=== PATIENT | female | born 1970 | race Caucasian/White ===

== ENCOUNTER 2020-10-23 16:06 | Inpatient (IN) | payer OTHER, SELFPAY ==
[2020-10-23] VITALS (8 sets, daily range): BP systolic 110–133; BP diastolic 62–78; PULSE 68–126; RESP 15–18; TEMP 36.3–36.8; O2SAT 96–100; BMI 25.0; BMI 24.8
--- NOTE | 2020-10-23 16:34 | EKG12_ITS ---
Test Reason : ABD PAIN Blood Pressure : / mmHG Vent. Rate : 071 BPM Atrial Rate : 071 BPM P-R Int : 146 ms QRS Dur : 078 ms QT Int : 412 ms P-R-T Axes : 059 079 062 degrees QTc Int : 447 ms Normal sinus rhythm Normal ECG Confirmed by FEROZ JERONIMO, EDEN ([id number]), rn float JOSE PIERCE ([id number]) on 10/25/2020 1:30:12 PM Referred By: FRITZ Confirmed By:EDEN REDMAN MD
--- NOTE | 2020-10-23 16:34 | CT_ITS ---
HISTORY: abd pain, history of cecal malignancy EXAMINATION: CT Abdomen And Pelvis W/ Contrast Injection TECHNIQUE: Helically acquired images were obtained of the abdomen and pelvis following IV contrast. A radiation dose optimization technique was used for this scan. IV Contrast dosage and agent: 100mL Isovue-370 Oral contrast: None. COMPARISON: 11/26/16 FINDINGS: LOWER CHEST: Lung bases are clear. No cardiomegaly or pericardial effusion. LIVER: Homogeneous. No focal mass. GALLBLADDER AND BILIARY TREE: No calcified gallstones. No gallbladder distension or wall edema. No intra- or extrahepatic biliary ductal dilation. PANCREAS: No focal cystic or solid mass. SPLEEN: Normal size without focal cystic or solid mass. ADRENAL GLANDS: No nodules. KIDNEYS AND URETERS: Normal renal size and position. No hydronephrosis. PERITONEUM: No ascites or free air. BOWEL: Stable changes of partial right hemicolectomy, ileocolic anastomosis in the right upper quadrant. No stomach or bowel distension. Segment of wall thickening and mild adjacent inflammatory stranding in the mid sigmoid colon. LYMPH NODES: No enlarged mesenteric or retroperitoneal lymph nodes. VESSELS: Aorta is non-dilated. URINARY BLADDER: Unremarkable. REPRODUCTIVE ORGANS: No pelvic masses. ABDOMINAL WALL: No discrete abdominal or pelvic wall hernia. BONES: No acute or aggressive abnormality. CT/Abdomen/Pelvis WITH Contrast IMPRESSION: Colitis of the mid transverse colon, nonspecific appearance, likely infectious or other inflammatory etiology. Individualized dose optimization techniques were used for this CT. at 1902 Reported and signed by: Ramses Maynard MD Electronically Signed: Ramses Maynard MD at 19:01 EDT Tel , Service support ,
--- NOTE | 2020-10-23 16:36 | EX.ED.DYSGE1 ---
HPI History of Present Illness Chief Complaint: Abd Pain Narrative Narrative: 49-year-old female presenting with abdominal pain. Patient states this started around 1 PM today. She complains of epigastric abdominal pain. She denies nausea, vomiting, diarrhea. Denies constipation. Denies urinary complaints. Denies fever. She was diagnosed with shingles yesterday and started on valacyclovir. She went to urgent care and was advised her abdominal pain is unlikely to be secondary to this medication. She was advised to come to the emergency department for evaluation. [facility] Medical History (Updated 10/23/20 @ 21:[address] Anu Stewart MD) History of colon cancer Hypothyroid Home Medications levothyroxine 75 mcg PO DAILY 05/08/13 [History Last Taken 05/07/13] Vit D3/Folic Acid/B2/B6/B12 2,000 mg PO DAILY 12/17/16 [History Last Taken Unknown] acyclovir 400 mg PO BID 10/23/20 [History Last Taken Unknown] Allergy/AdvReac Type Severity Reaction Status Date / Time No Known Allergies Allergy Verified 10/23/20 16:09 Surgical History (Updated 10/23/20 @ 18:04 by Margaret Zuleta) History of colon resection Social History Smoking Status: Never smoker ROS [facility] ED Constitutional Constitutional ED: Denies fever(s) Eyes Eyes: Denies change in vision ENT ENT ED: Denies rhinorrhea or sore throat Cardiovascular Cardiovascular: Denies chest pain or palpitations Respiratory/Chest Respiratory/Chest: Denies cough or dyspnea Gastrointestinal Gastrointestinal: Reports abdominal pain; Denies diarrhea, nausea or vomiting Genitourinary Genitourinary ED: Denies dysuria Musculoskeletal Musculoskeletal: Denies myalgias Integumentary Reports rash Neurologic Neurologic: Denies headache(s) EXAM Physical Exam Const Vital Signs: 10/23/20 16:07 10/23/20 18:31 10/23/20 19:30 Temperature 97.3 F L Temperature Source Temporal Pulse Rate 68 83 126 H Respiratory Rate 15 16 18 Blood Pressure 133/69 H 127/62 H 110/78 Blood Pressure Mean 90 83 88 Pulse Ox 100 97 96 Oxygen Delivery Method Room Air Room Air 10/23/20 19:45 10/23/20 20:27 Temperature 98.3 F Temperature Source Oral Pulse Rate 118 H 94 Respiratory Rate 16 18 Blood Pressure 121/72 H 111/64 Blood Pressure Mean 88 79 Pulse Ox 100 100 Oxygen Delivery Method Room Air Room Air Positive well nourished and well developed General Appearance ED: well developed HEENT Reports normocephalic and head/scalp atraumatic Eyes PERRL and EOMs intact bilaterally Neck supple General: Negative for tenderness Chest Wall inspection of chest normal Resp normal respiratory effort and clear to auscultation bilaterally Cardio regular rate and regular rhythm GI Palpation: soft and tender epigastric; Negative for guarding or rebound tenderness present no CVA tenderness Extremity normal to inspection Neuro oriented x3 Sensorium / Orientation: alert Psych mental status grossly normal Skin Skin Narrative: Vesicular rash left flank consistent with shingles MDM MDM MDM Narrative Medical decision making narrative: Patient was given morphine, Zofran, IV fluids. She continues to be nauseated and was given additional dose of IV Zofran. She is unable to tolerate p.o. contrast for CT scan. She was given Phenergan IM. She then developed palpitations and chest pressure. Repeat EKG showed A. fib with RVR. She has no history of A. fib in the past. CT abdomen pelvis shows colitis. Lactic acid was added on and is 2.2. She was given Cardizem IV. Heart rate is 100 on reevaluation. Her pain and nausea is controlled at this time. Discussed with Dr. Vogel. Patient was given Cipro, Flagyl IV. Discussed with hospitalist for admission. Lab Data Attestation: I reviewed the patient's lab results. Labs: Laboratory Results - last 24 hr 10/23/20 10/23/20 10/23/20 16:45 16:45 19:23 WBC 14.8 H RBC 4.53 Hgb 14.9 Hct 42.3 MCV 93.4 MCH 32.9 H MCHC 35.2 RDW Std Deviation 40.3 RDW Coeff of Azael 11.8 Plt Count 224 MPV 11.6 Immature Gran % (Auto) 0.400 Neut % (Auto) 89.1 H Lymph % (Auto) 6.5 L [place] % (Auto) 3.8 Eos % (Auto) 0.1 Baso % (Auto) 0.1 Absolute Neuts (auto) 13.2 H Absolute Lymphs (auto) 0.96 Nucleated RBC % 0 Sodium 136 Potassium 4.4 Chloride 105 Carbon Dioxide 26.0 Anion Gap 5 BUN 18 Creatinine 0.87 Estim Creat Clear Calc 69.61 Est GFR (MDRD) Af Amer 88 Est GFR (MDRD) Non-Af 73 BUN/Creatinine Ratio 20.7 H Glucose 128 H Lactic Acid Calcium 9.0 Total Bilirubin 1.70 H AST 25 ALT 18 Alkaline Phosphatase 49 Troponin I < 0.015 Total Protein 7.4 Albumin 3.6 Globulin 3.8 Albumin/Globulin Ratio 0.9 Lipase 56 L Urine Color Yellow Urine Clarity Clear Urine pH 6.5 Ur Specific [place] 1.010 Urine Protein Negative Urine Glucose (UA) Normal Urine Ketones 50 H Urine Occult Blood Negative Urine Nitrite Negative Urine Bilirubin Negative Urine Urobilinogen Normal Ur Leukocyte Esterase Negative Urine RBC 0 SEEN Urine WBC 0 SEEN Ur Squamous Epith Cells 0 SEEN Urine Bacteria 0 SEEN Urine Mucus 0 SEEN 10/23/20 10/23/20 19:43 19:58 WBC RBC Hgb Hct MCV MCH MCHC RDW Std Deviation RDW Coeff of Azael Plt Count MPV Immature Gran % (Auto) Neut % (Auto) Lymph % (Auto) [place] % (Auto) Eos % (Auto) Baso % (Auto) Absolute Neuts (auto) Absolute Lymphs (auto) Nucleated RBC % Sodium Potassium Chloride Carbon Dioxide Anion Gap BUN Creatinine Estim Creat Clear Calc Est GFR (MDRD) Af Amer Est GFR (MDRD) Non-Af BUN/Creatinine Ratio Glucose Lactic Acid 2.2 H* Calcium Total Bilirubin AST ALT Alkaline Phosphatase Troponin I < 0.015 Total Protein Albumin Globulin Albumin/Globulin Ratio Lipase Urine Color Urine Clarity Urine pH Ur Specific [place] Urine Protein Urine Glucose (UA) Urine Ketones Urine Occult Blood Urine Nitrite Urine Bilirubin Urine Urobilinogen Ur Leukocyte Esterase Urine RBC Urine WBC Ur Squamous Epith Cells Urine Bacteria Urine Mucus Radiography Chest X-Ray - ED: 1 View, Read by ED Physician and Read by Radiologist Diagnostic Testing: Radiology Impression Abdomen/Pelvis CT 10/23/20 16:34 IMPRESSION: Colitis of the mid transverse colon, nonspecific appearance, likely infectious or other inflammatory etiology. Individualized dose optimization techniques were used for this CT. at 1902 Reported and signed by: Ramses Maynard MD Electronically Signed: Ramses Maynard MD at 19:01 EDT Tel , Service support , Chest X-Ray 10/23/20 17:30 IMPRESSION: No radiographic evidence of acute cardiopulmonary disease. at 1823 Reported and signed by: Ramses Maynard MD Electronically Signed: Ramses Maynard MD at 18:21 EDT Tel , Service support , EKG Initial EKG: Attestation: I personally reviewed and interpreted this EKG as follows: Interpretation: Sinus Rhythm and No Acute Injury Pattern Comments: Normal sinus rhythm rate of 71. Follow-up EKG: Attestation: I personally reviewed and interpreted this EKG as follows: Interpretation: Atrial Fibrillation Comments: A. fib with RVR rate of 125. Prior: Changed Discharge Plan Dx/Rx/DC Orders Clinical Impression: Colitis, New onset a-fib Disposition Disposition: Acute Care [facility]
[2020-10-23] MEDS: Morphine 4 MG/ML Syringe IV (16:43)
[2020-10-23] MEDS: Ondansetron 4 MG/2 ML Vial IV ×2 (16:43→17:58)
[2020-10-23] MEDS: 0.9% Normal Saline 1,000 ML 1000 ML IV (16:43)
[2020-10-23 17:03] LABS: Absolute Lymphocyte Count 0.96 X10^3/uL (0.83-4.51); Absolute Neutrophil Count 13.2 X10^3/uL (2.0-7.7); Basophil# 0.02 X10^3/uL; Basophil% 0.1 % (0-1); Eosinophil# 0.02 X10^3/uL; Eosinophils% 0.1 % (0-5); Hematocrit 42.3 % (37-47); Hemoglobin 14.9 g/dL (12.0-15.0); Lymphocyte # 0.96 X10^3/ul (0.83-4.51); Lymphocyte % 6.5 % (19-41); Mean Corp Hgb Conc 35.2 g/dL (32-36); Mean Corpuscular Hgb 32.9 pg (27.0-32.0); Mean Corpuscular Volume 93.4 fL (81-99); Mean Platelet Vol. 11.6 fl (6.2-12.0); Monocyte# 0.57 X10^3/uL; Monocyte% 3.8 % (0-10); NRBC Flagged by Analyzer 0 % (0-5); Neutrophil # 13.19 X10^3/uL (2.7-7.7); Neutrophil % 89.1 % (47-70); Platelet Count 224 K/mm3 (150-450); RBC Distribution Width CV 11.8 % (11.6-14.6); RBC Distribution Width SD 40.3 fl (35.1-43.9); Red Blood Count 4.53 M/mm3 (4.2-5.4); White Blood Count 14.8 K/mm3 (4.4-11.0)
[2020-10-23] MEDS: HYDROmorphone 1 MG/ML Syringe IV (17:13)
[2020-10-23 17:18] LABS: ALB/GLOB Ratio 0.9 RATIO (0.9-2.4); AST(SGOT) 25 U/L (15-37); Alanine Aminotransfer ALT/SGPT 18 U/L (13-56); Albumin, Serum 3.6 g/dL (3.2-5.0); Alkaline Phosphatase 49 U/L (45-117); Anion Gap 5 (5-15); BUN 18 mg/dL (7-18); BUN/Creat Ratio 20.7 RATIO (10-20); Chloride 105 mmol/L (98-107); Creatinine, Serum 0.87 mg/dL (0.55-1.02); EST Glomerular Filtration Rate 73 mL/min (>60); Est Glom Filt Rate - Afr Amer 88 mL/min (>60); Estimated Creatinine Clearance 69.61 ml/min; Globulin 3.8 g/dL (2.2-4.2); Glucose 128 mg/dL (74-106); Lipase 56 U/L (73-393); Potassium 4.4 mmol/L (3.5-5.1); Protein, Total 7.4 g/dL (6.4-8.2); Sodium Level 136 mmol/L (136-145)
--- NOTE | 2020-10-23 17:30 | RAD_ITS ---
HISTORY: sob EXAMINATION/TECHNIQUE: XR Chest 1 View: Portable upright AP chest x-ray COMPARISON: 12/22/11 FINDINGS: LINES/DEVICES: None. LUNGS: No consolidation, edema or effusion. No pneumothorax. MEDIASTINUM AND CARDIOVASCULAR STRUCTURES: Cardiac silhouette not enlarged. Central airways and mediastinal contour are unremarkable. BONES AND SOFT TISSUES: No acute bony abnormalities. RAD/Chest 1 View (Portable) IMPRESSION: No radiographic evidence of acute cardiopulmonary disease. at 1823 Reported and signed by: Ramses Maynard MD Electronically Signed: Ramses Maynard MD at 18:21 EDT Tel , Service support ,
[2020-10-23] MEDS: proMETHazine 25 MG/ML Syringe 12.5 MG IM (19:15)
--- NOTE | 2020-10-23 19:29 | EKG12_ITS ---
Test Reason : RHY CHANGE Blood Pressure : / mmHG Vent. Rate : 125 BPM Atrial Rate : 147 BPM P-R Int : 000 ms QRS Dur : 086 ms QT Int : 324 ms P-R-T Axes : 000 061 -79 degrees QTc Int : 467 ms Atrial fibrillation with rapid ventricular response ST & T wave abnormality, consider inferior ischemia Abnormal ECG Confirmed by FEROZ JERONIMO, EDEN ([id number]), scientific publications editor JOSE PIERCE ([id number]) on 10/25/2020 1:30:30 PM Referred By: Confirmed By:EDEN REDMAN MD
[2020-10-23 19:38] LABS: Bacteria 0 SEEN /hpf (None Seen); Mucous, Urine 0 SEEN /hpf (<or=2+); Red Blood Cells-Urine 0 SEEN /hpf (0-5); Squamous Epithelial Cells - UA 0 SEEN /hpf (5-10); White Blood Cells 0 SEEN /hpf (0-5)
[2020-10-23 19:39] LABS: Color, Urine Yellow (Yellow); Glucose, Dipstick Normal (Normal); Ketone-Dipstick 50 mg/dl (Negative); Leukocyte Esterase-Dipstick Negative /ul (Negative); Nitrite-Dipstick Negative (Negative); Occult Blood-Urine Negative /ul (Negative); Protein-Dipstick Negative (Negative); Urine Bilirubin Dipstick Negative (Negative); Urine Clarity Clear (Clear); Urine Urobilinogen Normal (Normal); Urine pH 6.5 (5.0 - 8.0)
[2020-10-23] MEDS: dilTIAZem 25 MG/5 ML Vial 10 MG IV BOLUS (19:46)
[2020-10-23 20:19] LABS: Lactic Acid 2.2 mmol/L (0.4-1.9)
--- NOTE | 2020-10-23 21:16 | PCM.HP.STD ---
HPI - General General Date of Admission: 10/23/20 HPI Narrative DC OLSON, is a 49 F with a significant history of colon cancer status post colectomy and chemotherapy who presents to the emergency department with excruciating sharp and occasionally pulsating epigastric pain that started about 3 hours prior to presentation. The pain radiated to the left upper quadrant of her abdomen in a straight line fashion. The pain worsens with lying down and improves with sitting. She has some nausea and vomiting after she received her pain medication at the emergency department. Because of nausea and vomiting CT of the abdomen and pelvis was done with IV contrast and not oral contrast. Last time her bowels moved was on the same day of presentation. Her stool at that time was soft. She denies anorexia. At the emergency department patient was found to be in A. fib with RVR. However she denies any palpitations. Her lactic acid was elevated. Emergency department doctor discussed the case with general surgeon who recommended antibiotics and n.p.o. Four to six weeks ago patient had intermittent epigastric pain. She saw her PCP who ordered ultrasound and blood work. Patient was diagnosed with gastritis and was put on Pepcid. A day before this presentation patient was diagnosed with shingles and started on acyclovir. [facility] History (Updated 10/23/20 @ 21:[address] Miguel Hoover MD) Colon cancer History of colon cancer Hypothyroid Vertigo Home Medications levothyroxine 75 mcg PO DAILY 05/08/13 [History Last Taken 05/07/13] valacyclovir 1,000 mg PO TID 10/23/20 [History Last Taken Unknown] Allergy/AdvReac Type Severity Reaction Status Date / Time No Known Allergies Allergy Verified 10/23/20 16:09 Family History (Updated 10/23/20 @ 21:[address] Miguel Hoover MD) Other Heart disease Surgical History (Updated 10/23/20 @ 18:04 by Margaret Zuleta) History of colon resection Social History Smoking Status: Never smoker ROS ROS Narrative Review of system is negative except as stated in HPI. Vital Signs Vital Signs Vital Signs: 10/23/20 16:07 10/23/20 18:31 10/23/20 19:30 Temperature 97.3 F L Temperature Source Temporal Pulse Rate 68 83 126 H Respiratory Rate 15 16 18 Blood Pressure 133/69 H 127/62 H 110/78 Blood Pressure Mean 90 83 88 Pulse Ox 100 97 96 Oxygen Delivery Method Room Air Room Air 10/23/20 19:45 10/23/20 20:27 Temperature 98.3 F Temperature Source Oral Pulse Rate 118 H 94 Respiratory Rate 16 18 Blood Pressure 121/72 H 111/64 Blood Pressure Mean 88 79 Pulse Ox 100 100 Oxygen Delivery Method Room Air Room Air Physical Exam Narrative Alert and oriented x3 Nontraumatic; normocephalic Lung clear to auscultate Heart sounds S1-S2. No murmur, gallop or rubs. Abdomen bowel sounds present soft, nontender nondistended Extremity without edema cyanosis or clubbing. Integumentary: Left thigh with grouped vesicles with crusting Lab / Micro Data Result Diagrams: 10/23/20 16:45 10/23/20 16:45 Labs: Laboratory Results - last 24 hr 10/23/20 10/23/20 10/23/20 16:45 16:45 19:23 WBC 14.8 H RBC 4.53 Hgb 14.9 Hct 42.3 MCV 93.4 MCH 32.9 H MCHC 35.2 RDW Std Deviation 40.3 RDW Coeff of Azael 11.8 Plt Count 224 MPV 11.6 Immature Gran % (Auto) 0.400 Neut % (Auto) 89.1 H Lymph % (Auto) 6.5 L [place] % (Auto) 3.8 Eos % (Auto) 0.1 Baso % (Auto) 0.1 Absolute Neuts (auto) 13.2 H Absolute Lymphs (auto) 0.96 Nucleated RBC % 0 Sodium 136 Potassium 4.4 Chloride 105 Carbon Dioxide 26.0 Anion Gap 5 BUN 18 Creatinine 0.87 Estim Creat Clear Calc 69.61 Est GFR (MDRD) Af Amer 88 Est GFR (MDRD) Non-Af 73 BUN/Creatinine Ratio 20.7 H Glucose 128 H Lactic Acid Calcium 9.0 Total Bilirubin 1.70 H AST 25 ALT 18 Alkaline Phosphatase 49 Troponin I < 0.015 Total Protein 7.4 Albumin 3.6 Globulin 3.8 Albumin/Globulin Ratio 0.9 Lipase 56 L Urine Color Yellow Urine Clarity Clear Urine pH 6.5 Ur Specific [place] 1.010 Urine Protein Negative Urine Glucose (UA) Normal Urine Ketones 50 H Urine Occult Blood Negative Urine Nitrite Negative Urine Bilirubin Negative Urine Urobilinogen Normal Ur Leukocyte Esterase Negative Urine RBC 0 SEEN Urine WBC 0 SEEN Ur Squamous Epith Cells 0 SEEN Urine Bacteria 0 SEEN Urine Mucus 0 SEEN 10/23/20 10/23/20 19:43 19:58 WBC RBC Hgb Hct MCV MCH MCHC RDW Std Deviation RDW Coeff of Azael Plt Count MPV Immature Gran % (Auto) Neut % (Auto) Lymph % (Auto) [place] % (Auto) Eos % (Auto) Baso % (Auto) Absolute Neuts (auto) Absolute Lymphs (auto) Nucleated RBC % Sodium Potassium Chloride Carbon Dioxide Anion Gap BUN Creatinine Estim Creat Clear Calc Est GFR (MDRD) Af Amer Est GFR (MDRD) Non-Af BUN/Creatinine Ratio Glucose Lactic Acid 2.2 H* Calcium Total Bilirubin AST ALT Alkaline Phosphatase Troponin I < 0.015 Total Protein Albumin Globulin Albumin/Globulin Ratio Lipase Urine Color Urine Clarity Urine pH Ur Specific [place] Urine Protein Urine Glucose (UA) Urine Ketones Urine Occult Blood Urine Nitrite Urine Bilirubin Urine Urobilinogen Ur Leukocyte Esterase Urine RBC Urine WBC Ur Squamous Epith Cells Urine Bacteria Urine Mucus Radiology Impression Abdomen/Pelvis CT 10/23/20 16:34 IMPRESSION: Colitis of the mid transverse colon, nonspecific appearance, likely infectious or other inflammatory etiology. Individualized dose optimization techniques were used for this CT. at 1902 Reported and signed by: Ramses Maynard MD Electronically Signed: Ramses Maynard MD at 19:01 EDT Tel , Service support , Chest X-Ray 10/23/20 17:30 IMPRESSION: No radiographic evidence of acute cardiopulmonary disease. at 1823 Reported and signed by: Ramses Maynard MD Electronically Signed: Ramses Maynard MD at 18:21 EDT Tel , Service support , Assessment & Plan Assessment/Plan (1) Colitis: (2) New onset a-fib: (3) Hypothyroidism: QUALIFIERS: Hypothyroidism type: unspecified Qualified Code(s): E03.9 - Hypothyroidism, unspecified (4) Shingles: QUALIFIERS: Herpes zoster complications: without complications Qualified Code(s): B02.9 - Zoster without complications PLAN: Colitis Mid transverse colon Ciprofloxacin IV and Flagyl IV was started emergency department continue Get stool studies. N.p.o. except meds. Lactic acid elevated at 2.2; trend Trend CBC and BMP. General surgery consult New onset A. fib Impression of chest x-ray by radiologist: No radiographic evidence of acute cardiopulmonary disease. Actual Chest x-ray image was independently reviewed. Chest x-ray with hyperinflation without any acute cardiopulmonary process. Normal saline bolus and then normal saline at maintenance rate ordered. Check TSH and magnesium. Get an echocardiogram. Shingles Valacyclovir continued Continue DVT prophylaxis: SCD.
[2020-10-23] MEDS: Ciprofloxacin 400 MG/200 ML BAG 200 MG IV (21:51)
--- NOTE | 2020-10-23 22:07 | ECHOD_ITS ---
Reason For Study: New onset Afib/Flutter Procedure This was a 2D Doppler, Color Flow transthoracic echocardiogram. Exam performed portable in patient room. Left Ventricle Normal LV size. Left ventricular systolic function is normal. The estimated ejection fraction is 65 %. No regional wall motion abnormalities noted. Right Ventricle Normal RV size. Normal systolic function. Atria Normal left atrium. Normal right atrium. Mitral Valve Normal mitral valve. Tricuspid Valve Normal tricuspid valve. Aortic Valve Normal aortic valve. Trisinus/trileaflet aortic valve. Pulmonic Valve Normal pulmonic valve. Great Vessels Normal aortic root. The pulmonary artery is normal size. Inferior vena cava collapse with respiration. Pericardium/Pleural No pericardial effusion. MMode/2D Measurements & Calculations LVIDd: 4.1 cm IVSd: 0.57 cm LA dimension: 3.4 cm LVIDs: 2.2 cm LVPWd: 0.70 cm RVDd: 3.2 cm FS: 45.5 % LAV(MOD-bp): 46.8 ml LA A4 area: 18.4 cm2 RA A4 area: 12.5 cm2 LAV(MOD-bp) Indexed: 26.8 ml/m2 LAV(MOD-sp2): 35.5 ml LAV(MOD-sp4): 56.7 ml Time Measurements MV dec time: 0.15 sec Doppler Measurements & Calculations MV E max rodrigue: 91.2 cm/sec Lat Peak E' Rodrigue: 14.7 cm/sec Med Peak E' Rodrigue: 13.8 cm/sec MV A max rodrigue: 74.7 cm/sec E/E' lat: 6.2 E/E' med: 6.6 MV E/A: 1.2 MV V2 max: 127.8 cm/sec MV P1/2t max rodrigue: 128.4 cm/sec Ao V2 max: 147.7 cm/sec MV max P.5 mmHg MV P1/2t: 61.0 msec Ao max P.7 mmHg MV V2 mean: 66.8 cm/sec MV dec slope: 616.3 cm/sec2 MV mean P.2 mmHg MVA(P1/2t): 3.6 cm2 MV V2 VTI: 23.7 cm LV V1 max: 126.2 cm/sec PA V2 max: 79.6 cm/sec LV V1 max P.4 mmHg ECHO/Echo Complete Interpretation Summary Normal LV size. Left ventricular systolic function is normal. The estimated ejection fraction is 65 %. Structurally normal valves. Ordering Physician: Miguel Hoover Referring Physician: Koko Gonzalez Performed By: Nando Gallegos RCS
[2020-10-23 22:21] LABS: Magnesium 1.8 mg/dL (1.6-2.6)
[2020-10-23] MEDS: 0.9% Saline Lock 10 ML Syringe IV (22:44)
[2020-10-23] MEDS: 0.9% Normal Saline 1,000 ML 100 ML IV (22:44)
[2020-10-23] MEDS: Acyclovir 800 MG Tablet PO (22:56)
[2020-10-23] MEDS: metroNIDAZOLE 500 MG/100 ML BAG 100 MG IV (22:56)
[2020-10-23 23:48] LABS: Reflex Lactate? Y
[2020-10-24] VITALS (9 sets, daily range): BP systolic 83–107; BP diastolic 50–56; PULSE 83–98; RESP 18; TEMP 36.7–37.3; O2SAT 96–98
[2020-10-24 00:57] LABS: Lactic Acid 1.2 mmol/L (0.4-1.9)
[2020-10-24] MEDS: metroNIDAZOLE 500 MG/100 ML BAG 100 MG IV ×2 (05:52→13:26)
[2020-10-24] MEDS: Acyclovir 800 MG Tablet PO ×3 (05:53→15:06)
[2020-10-24] MEDS: Levothyroxine 75 MCG Tablet PO (05:53)
--- NOTE | 2020-10-24 06:48 | CON.PCM.SX_ITS ---
Assessment & Plan Assessment/Plan (1) Colitis: PLAN: The patient was having severe epigastric pain yesterday during adm ission. She is also noted to have been in A. fib which is a new problem for her. This morning the patient reports she is having no abdominal pain. I did palpate her abdomen and she is soft and nontender. I will start her on clear liquids but I would recommend staying on clear liquids for 24 hours and continuing IV antibiotics. If she is still having no pain tomorrow I will advance her to a regular diet she may be ready for discharge. I encouraged the patient to have a colonoscopy sooner than 1 year from now. She will follow-up with her doctor in [place]. lCayton Vogel MD Pager: [facility] [address] [place] [address], [address] [place] [address] Office: HPI Consult Data Date of Consult: 10/24/20 HPI Narrative HPI Narrative: DC OLSON, is a 49 F who presents with abdominal pain. The patient reports that she has been having epigastric pain and was seen by an urgent care 4 to 6 weeks ago. She says that yesterday the pain got severely worse and she did feel some abnormal heart rhythm. She has not been having any diarrhea or nausea or vomiting. She reports no fevers or chills. The patient does have a significant history for right hemicolectomy due to colon cancer. Her last colonoscopy was [address] [facility] Medical History (Updated 10/23/20 @ 21:[address] Miguel Hoover MD) Colon cancer History of colon cancer Hypothyroid Vertigo Home Medications levothyroxine 75 mcg PO DAILY 05/08/13 [History Last Taken 05/07/13] valacyclovir 1,000 mg PO TID 10/23/20 [History Last Taken Unknown] Allergy/AdvReac Type Severity Reaction Status Date / Time No Known Allergies Allergy Verified 10/23/20 16:09 Family History (Updated 10/23/20 @ 21:[address] Miguel Hoover MD) Other Heart disease Surgical History (Updated 10/23/20 @ 18:04 by Margaret Zuleta) History of colon resection Social History Smoking Status: Never smoker ROS Constitutional Constitutional: Denies anorexia or fatigue Cardiovascular Cardiovascular: Reports palpitations Respiratory/Chest Respiratory/Chest: Reports systems reviewed and no addt'l complaints, except as documented Gastrointestinal Gastrointestinal: Reports abdominal pain; Denies bloating, constipation, diarrhea, nausea or vomiting Musculoskeletal Musculoskeletal: Reports systems reviewed and no addt'l complaints, except as documented Integumentary Integumentary: Reports systems reviewed and no addt'l complaints, except as documented Physical Exam Const alert and oriented x3 HEENT normocephalic Neck full ROM Lymph Lymphatic: no lymphadenopathy noted Resp normal respiratory effort Cardio Rate: regular rate GI soft to palpation, non-tender and non-distended Skin no rashes or lesions noted Lab / Micro Data Result Diagrams: 10/23/20 16:45 10/23/20 16:45 Labs: Laboratory Results - last 24 hr 10/23/20 10/23/20 10/23/20 16:45 16:45 19:23 WBC 14.8 H RBC 4.53 Hgb 14.9 Hct 42.3 MCV 93.4 MCH 32.9 H MCHC 35.2 RDW Std Deviation 40.3 RDW Coeff of Azael 11.8 Plt Count 224 MPV 11.6 Immature Gran % (Auto) 0.400 Neut % (Auto) 89.1 H Lymph % (Auto) 6.5 L [place] % (Auto) 3.8 Eos % (Auto) 0.1 Baso % (Auto) 0.1 Absolute Neuts (auto) 13.2 H Absolute Lymphs (auto) 0.96 Nucleated RBC % 0 Sodium 136 Potassium 4.4 Chloride 105 Carbon Dioxide 26.0 Anion Gap 5 BUN 18 Creatinine 0.87 Estim Creat Clear Calc 69.61 Est GFR (MDRD) Af Amer 88 Est GFR (MDRD) Non-Af 73 BUN/Creatinine Ratio 20.7 H Glucose 128 H Lactic Acid Calcium 9.0 Magnesium Total Bilirubin 1.70 H AST 25 ALT 18 Alkaline Phosphatase 49 Troponin I < 0.015 Total Protein 7.4 Albumin 3.6 Globulin 3.8 Albumin/Globulin Ratio 0.9 Lipase 56 L Urine Color Yellow Urine Clarity Clear Urine pH 6.5 Ur Specific [place] 1.010 Urine Protein Negative Urine Glucose (UA) Normal Urine Ketones 50 H Urine Occult Blood Negative Urine Nitrite Negative Urine Bilirubin Negative Urine Urobilinogen Normal Ur Leukocyte Esterase Negative Urine RBC 0 SEEN Urine WBC 0 SEEN Ur Squamous Epith Cells 0 SEEN Urine Bacteria 0 SEEN Urine Mucus 0 SEEN 10/23/20 10/23/20 10/23/20 19:43 19:58 22:07 WBC RBC Hgb Hct MCV MCH MCHC RDW Std Deviation RDW Coeff of Azael Plt Count MPV Immature Gran % (Auto) Neut % (Auto) Lymph % (Auto) [place] % (Auto) Eos % (Auto) Baso % (Auto) Absolute Neuts (auto) Absolute Lymphs (auto) Nucleated RBC % Sodium Potassium Chloride Carbon Dioxide Anion Gap BUN Creatinine Estim Creat Clear Calc Est GFR (MDRD) Af Amer Est GFR (MDRD) Non-Af BUN/Creatinine Ratio Glucose Lactic Acid 2.2 H* Calcium Magnesium 1.8 Total Bilirubin AST ALT Alkaline Phosphatase Troponin I < 0.015 Total Protein Albumin Globulin Albumin/Globulin Ratio Lipase Urine Color Urine Clarity Urine pH Ur Specific [place] Urine Protein Urine Glucose (UA) Urine Ketones Urine Occult Blood Urine Nitrite Urine Bilirubin Urine Urobilinogen Ur Leukocyte Esterase Urine RBC Urine WBC Ur Squamous Epith Cells Urine Bacteria Urine Mucus 10/24/20 00:25 WBC RBC Hgb Hct MCV MCH MCHC RDW Std Deviation RDW Coeff of Azael Plt Count MPV Immature Gran % (Auto) Neut % (Auto) Lymph % (Auto) [place] % (Auto) Eos % (Auto) Baso % (Auto) Absolute Neuts (auto) Absolute Lymphs (auto) Nucleated RBC % Sodium Potassium Chloride Carbon Dioxide Anion Gap BUN Creatinine Estim Creat Clear Calc Est GFR (MDRD) Af Amer Est GFR (MDRD) Non-Af BUN/Creatinine Ratio Glucose Lactic Acid 1.2 Calcium Magnesium Total Bilirubin AST ALT Alkaline Phosphatase Troponin I Total Protein Albumin Globulin Albumin/Globulin Ratio Lipase Urine Color Urine Clarity Urine pH Ur Specific [place] Urine Protein Urine Glucose (UA) Urine Ketones Urine Occult Blood Urine Nitrite Urine Bilirubin Urine Urobilinogen Ur Leukocyte Esterase Urine RBC Urine WBC Ur Squamous Epith Cells Urine Bacteria Urine Mucus Radiology Impression Abdomen/Pelvis CT 10/23/20 16:34 IMPRESSION: Colitis of the mid transverse colon, nonspecific appearance, likely infectious or other inflammatory etiology. Individualized dose optimization techniques were used for this CT. at 1902 Reported and signed by: Ramses Maynard MD Electronically Signed: Ramses Maynard MD at 19:01 EDT Tel , Service support , Chest X-Ray 10/23/20 17:30 IMPRESSION: No radiographic evidence of acute cardiopulmonary disease. at 1823 Reported and signed by: Ramses Maynard MD Electronically Signed: Ramses Maynard MD at 18:21 EDT Tel , Service support ,
[2020-10-24 06:59] LABS: Absolute Lymphocyte Count 1.64 X10^3/uL (0.83-4.51); Absolute Neutrophil Count 6.8 X10^3/uL (2.0-7.7); Basophil# 0.01 X10^3/uL; Basophil% 0.1 % (0-1); Eosinophil# 0.01 X10^3/uL; Eosinophils% 0.1 % (0-5); Hematocrit 36.9 % (37-47); Hemoglobin 12.7 g/dL (12.0-15.0); Lymphocyte # 1.64 X10^3/ul (0.83-4.51); Lymphocyte % 18.2 % (19-41); Mean Corp Hgb Conc 34.4 g/dL (32-36); Mean Corpuscular Hgb 32.6 pg (27.0-32.0); Mean Corpuscular Volume 94.9 fL (81-99); Mean Platelet Vol. 11.6 fl (6.2-12.0); Monocyte# 0.54 X10^3/uL; NRBC Flagged by Analyzer 0 % (0-5); Neutrophil # 6.78 X10^3/uL (2.7-7.7); Neutrophil % 75.3 % (47-70); Platelet Count 204 K/mm3 (150-450); RBC Distribution Width CV 11.9 % (11.6-14.6); RBC Distribution Width SD 41.1 fl (35.1-43.9); Red Blood Count 3.89 M/mm3 (4.2-5.4)
[2020-10-24 07:31] LABS: Anion Gap 6 (5-15); BUN 8 mg/dL (7-18); BUN/Creat Ratio 13.5 RATIO (10-20); Calcium,Total 7.7 mg/dL (8.5-10.1); Chloride 110 mmol/L (98-107); Creatinine, Serum 0.59 mg/dL (0.55-1.02); EST Glomerular Filtration Rate 114 mL/min (>60); Est Glom Filt Rate - Afr Amer 138 mL/min (>60); Estimated Creatinine Clearance 102.65 ml/min; Glucose 91 mg/dL (74-106); Potassium 3.3 mmol/L (3.5-5.1); Sodium Level 141 mmol/L (136-145); Thyroid Stim Hormone (TSH) 0.98 uIU/mL (0.358-3.74)
[2020-10-24] MEDS: Acetaminophen 325 MG Tablet 650 MG PO ×2 (08:49→15:12)
[2020-10-24] MEDS: Pantoprazole Sodium 20 MG Tablet PO (08:50)
[2020-10-24] MEDS: 0.9% Normal Saline 1,000 ML 100 ML IV (08:50)
[2020-10-24] MEDS: Ciprofloxacin 400 MG/200 ML BAG 200 MG IV (08:52)
--- NOTE | 2020-10-24 09:53 | CASEMGMT ---
ASHLEY GARVEY Assessment: Face to Face with pt for initial transition planning/care coordination assessment. RN MARE introduced self and role at [facility], pt voices understanding and consents to assessment. Pt is A/O x4 and answers all questions appropriately at this time. Pt sitting up in bed in no distress. Care providers, pharmacy, and demographics verified/updated. Admitting Dx: colitis, Afib with RVR PCP: Lisa Specialists: axel Spencer Preferred Pharmacy: [facility] Insurance: MMO Prescription Benefit: yes LW/HPOA: Pt denies having a LW/DPOA. States this is on her list for the summer to do. LNOK: Zenon Simmons, ; Shadia Bhatt, mother Living Arrangements: Pt lives with in a single story house with 2 steps to enter. Pt states she is I in ADL's and denies concerns at home. Transportation: Pt drives self and denies issues with transportation. DME/HHC/SNF: Pt denies having any DME at home, nor need for. Denies previous HHC or SNF stays. Pt states no concerns with going home at time of dc. Pt states no further concerns/needs. 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 Advised pt to ask CM if any further question/concerns/needs arise, voices understanding. Pt Goal: Home Plan: Home with family support.
[2020-10-24] MEDS: 0.9% Saline Lock 10 ML Syringe IV (15:06)
--- NOTE | 2020-10-24 15:21 | PCM.DC ---
Discharge Instructions Diet Discharge Diet: No restrictions Activity Discharge Activity: Return to Normal Activity Weight Bearing Status: Full weight bearing Follow Up Care Test Results: Test results from this visit will be discussed in further detail at your follow-up appointment, if applicable. Discharge Plan Admission Admit Date/Time: 10/23/20 21:12 Primary Reason for Your Visit: Colitis Attending Provider: Gwyn Lopez Primary Care Provider: Koko Gonzalez Consulting Providers: Clayton Vogel Instructions Additional Instructions / Restrictions: Please follow-up with your veterinary microbiologist by phone within 1 to 2 weeks to schedule an outpatient colonoscopy and office visit Discharge Orders/Prescriptions Prescriptions: New ciprofloxacin HCl [Cipro] 500 mg tablet 500 mg PO BID Qty: 18 RF: 0 metronidazole [Flagyl] 500 mg tablet 500 mg PO TID Qty: 27 RF: 0 Continued levothyroxine 75 MCG tablet 75 mcg PO DAILY RF: 0 valacyclovir 1 gram tablet 1,000 mg PO TID RF: 0 Referrals / Follow Up: Koko Gonzalez MD [Primary Care Provider] - Within 2 Weeks Disposition Disposition (needs filled in before D/C Order can be placed): Home, self care
--- NOTE | 2020-11-01 07:53 | PCM.DC.SUM ---
Providers Date of Admission: 10/23/20 Date of Discharge: 10/24/20 Primary Care Physician: Dr. Koko Gonzalez MD Consultations 10/23/20 22:07 Consult: General Surgery Routine Consulting Provider: Clayton Vogel Reason for Consult: Colitis EMERGENT Consult: No Notified: Yes Date Notified:: 10/23/20 Time Notified: 21:10 Method of Notification: Provider Initiated Comments:: discussed with Dr. Vogel per MD note Reason For Visit: COLITIS, AFIB WITH RVR Diagnosis Discharge Diagnosis (1) Colitis: Status: Acute Code(s): K52.9 - Noninfective gastroenteritis and colitis, unspecified Plan: 1. Acute colitis-etiology unknown #2 new onset atrial fibrillation-converted to normal sinus rhythm #3 hypothyroidism Medications at Discharge Home Medications levothyroxine 75 mcg PO DAILY 05/08/13 valacyclovir 1,000 mg PO TID 10/23/20 ciprofloxacin HCl [Cipro] 500 mg PO BID #18 tab 10/24/20 metronidazole [Flagyl] 500 mg PO TID #27 tab 10/24/20 Hospital Course Operations None Procedures 2-D Echocardiogram Summary of Care Provided Minutes Spent on Discharge: 31 Hospital Course: This 49-year-old white female was seen in the emergency room at [facility] with chief complaint of abdominal pain, this pain was in the epigastric area, she denied nausea vomiting or diarrhea. Work-up in the emergency room included a CBC which showed an elevated white blood cell count of 14.8, she was given antinausea medications but developed palpitations and chest pressure, EKG showed A. fib with RVR, CT of the abdomen pelvis was performed which showed evidence of colitis, lactic acid was elevated at 2.2. Patient was given Cardizem IV which lowered her heart rate, patient was given Cipro and Flagyl IV and the case was discussed with general surgery. Patient was admitted to PCU, shortly thereafter she converted to normal sinus rhythm. Patient's abdominal pain improved, echocardiogram was performed which was unremarkable. Patient requested discharge and I felt it was acceptable due to the fact the patient's symptoms had improved. I did not feel the patient warranted anticoagulation due to her low [id number] score and the fact she had colitis. On examination she appeared in good health and spirits, she does not appear to be in any distress. Vital signs as documented. Skin warm and dry and without overt rashes. Neck without JVD, thyroid appears normal, trachea is midline, neck is supple. Lungs clear, normal air movement was noted. Heart exam notable for regular rhythm, normal sounds and absence of murmurs, rubs or gallops. Abdomen unremarkable and without evidence of organomegaly, masses, or abdominal aortic enlargement, bowel sounds are present in all 4 quadrants, no abdominal tenderness was noted. Extremities nonedematous, no cyanosis was noted, no clubbing was noted. Neuro: Cranial nerves II through XII are grossly intact, no focal motor deficits were noted, sensation to light touch and pinprick is intact, motor exam 5/5 throughout. Psych: Patient is alert and oriented x3, she does not appear anxious or depressed, she does not appear agitated. Patient was felt to be stable for discharge on 10/24/20 ABG / Lab / Microbiology Data Result Diagrams: 10/24/20 06:05 10/24/20 06:05 D/C Instructions Discharge Diet: No restrictions Discharge Activity: Return to Normal Activity Weight Bearing Status: Full weight bearing Meaningful Use Info Meaningful Use Diagnoses (Choose all that apply): None applicable Discharge Plan Admission Admit Date/Time: 10/23/20 21:12 Primary Reason for Your Visit: Colitis Attending Provider: Gwyn Lopez Primary Care Provider: Koko Gonzalez Consulting Providers: Clayton Vogel Instructions Additional Instructions / Restrictions: Patient Problems: Altered Health Status related to Hospitalization Patient Goals: *Optimal Level of Health *Keep Appointments *Medication Compliance *Remain SafePlease follow-up with your building appraiser by phone within 1 to 2 weeks to schedule an outpatient colonoscopy and office visit Discharge Orders/Prescriptions Prescriptions: New ciprofloxacin HCl [Cipro] 500 mg tablet 500 mg PO BID Qty: 18 RF: 0 metronidazole [Flagyl] 500 mg tablet 500 mg PO TID Qty: 27 RF: 0 Continued levothyroxine 75 MCG tablet 75 mcg PO DAILY RF: 0 valacyclovir 1 gram tablet 1,000 mg PO TID RF: 0 Referrals / Follow Up: Koko Gonzalez MD [Primary Care Provider] - Within 2 Weeks Disposition Disposition (needs filled in before D/C Order can be placed): Home, self care Visit Charges Inpatient E&M: [id number] Disch Hosp
== END 2020-10-24 17:14 | disposition home or self-care (01) | DRG 392 ==
LOC: ED 21:10 → PCU 21:21
PROVIDERS: Admitting Provider Hospitalist; Emergency Provider Emergency Medicine; PCP Family Medicine; Visit Provider Internal Medicine
DX: K52.9 Noninfective gastroenteritis and colitis, unspecified (principal); I48.91 Unspecified atrial fibrillation; B02.9 Zoster without complications; E03.9 Hypothyroidism, unspecified; Z85.038 Personal history of other malignant neoplasm of large intestine; Z79.890 Hormone replacement therapy; Z79.899 Other long term (current) drug therapy; Z92.21 Personal history of antineoplastic chemotherapy; Z90.49 Acquired absence of other specified parts of digestive tract
CPT/HCPCS: 36415; 71045; 74177; 80048; 80053; 81001; 83605; 83690; 83735; 84443; 84484; 85025; 93005; 93306; 99285; J7030; J7040; J7050; Q9967; A4216; J0744; J2405